=== PATIENT | female | born 1975 | race Caucasian/White ===

== ENCOUNTER 2017-09-26 10:24 | Inpatient (IN) | payer MEDICARE ==
[~2017-09-26] VITALS: Ht 132.1 cm; Wt 58.3 kg
[2017-09-26] MEDS ORDERED: ZIPRASIDONE 20 MG INJ IM ONE ×2 (11:59→12:00)
[2017-09-26 12:02] LABS: BASOPHILS # (AUTO) 0.04 x10^3/uL (0-0.1); BASOPHILS % (AUTO) 0 % (0-1); EOSINOPHILS # (AUTO) 0.22 x10^3/uL (0-0.4); EOSINOPHILS % (AUTO) 2 % (1-7); LYMPHOCYTES # (AUTO) 1.32 x10^3/uL (1-3.4); LYMPHOCYTES % (AUTO) 13 % (22-44); MD NO; MEAN CORPUSCULAR HEMOGLOBIN 31.8 pg (27.0-34.8); MEAN CORPUSCULAR HGB CONC 33.9 g/dL (32.4-35.8); MEAN CORPUSCULAR VOLUME 93.7 fL (80-100); MEAN PLATELET VOLUME 7.3 fL (7.4-10.4); MONOCYTES # (AUTO) 0.56 x10^3/uL (0.2-0.8); MONOCYTES % (AUTO) 5 % (2-9); NEUTROPHILS % (AUTO) 80 % (42-75); PLATELET COUNT 502 x10^3/uL (130-400); RED BLOOD COUNT 3.98 x10^6/uL (3.82-5.3); RED CELL DISTRIBUTION WIDTH 14.4 % (9.6-15.2)
[2017-09-26 12:16] LABS: ALANINE AMINOTRANSFERASE 20 U/L (12-78); ALBUMIN 2.8 g/dL (3.4-5.0); ANION GAP 9 mmol/L (5-15); CALCIUM 8.2 mg/dL (8.5-10.1); CHLORIDE 110 mmol/L (98-107); CREATININE 0.74 mg/dL (0.55-1.02); SALICYLATE LEVEL 2.2 mg/dL (2.8-20.0)
[2017-09-26 12:17] LABS: ALKALINE PHOSPHATASE 69 U/L (45-117); BILIRUBIN,TOTAL 0.2 mg/dL (0.2-1.0); TOTAL PROTEIN 7.1 g/dL (6.4-8.2)
[2017-09-26 12:28] LABS: ACETAMINOPHEN < 2 mcg/mL (10-30)
[2017-09-26] MEDS ORDERED: CLINDAMYCIN PMX 900MG/50ML 50 ML ONE (13:12)
[2017-09-26] MEDS ORDERED: PIPERACILLIN/TAZO/PMX 3.375GM 50 ML ONE (13:12)
[2017-09-26] MEDS ORDERED: SODIUM CHLORIDE 0.9% 1,000ML IVBOLUS ONE (13:30)
[2017-09-26] MEDS ORDERED: PIPERACILLIN/TAZO/PMX 3.375GM 50 ML IVPB ONE (13:30)
[2017-09-26] MEDS ORDERED: CLINDAMYCIN PMX 900MG/50ML 50 ML IV ONE (13:30)
[2017-09-26] MEDS ORDERED: KETAMINE 100 MG/ML, 5ML ONE (13:54)
[2017-09-26] MEDS ORDERED: morphine SULFATE 10 MG/ML, 1ML IVPush PRN (14:00)
[2017-09-26] MEDS ORDERED: DOCUSATE 100 MG CAPSULE PO PRN (14:00)
[2017-09-26] MEDS ORDERED: POLYETHYLENE GLYCOL 17 GM PACKET PO PRN (14:00)
[2017-09-26] MEDS ORDERED: ENALAPRILAT 1.25 MG/ML, 2ML IVPush PRN (14:00)
[2017-09-26] MEDS ORDERED: KETAMINE 10 MG/ML, 20ML IM ONE (14:00)
[2017-09-26] MEDS ORDERED: ONDANSETRON 2MG/ML, 2ML IVPush PRN (14:00)
[2017-09-26] MEDS ORDERED: BISACODYL 10 MG SUPP PR PRN (14:00)
[2017-09-26] MEDS ORDERED: LABETALOL 5MG/ML, 20ML IVPush PRN (14:00)
[2017-09-26 17:12] VITALS: BP 113/79
[2017-09-26] MEDS: ENOXAPARIN 40 MG/0.4 ML SQ SCH (18:14)
[2017-09-26] MEDS: SODIUM CHLORIDE 0.9% 1,000 ML IV SCH ×2 (18:14→23:39)
[2017-09-26] MEDS: PIPERACILLIN/TAZO/PMX 3.375GM 50 ML IV SCH (18:28)
[2017-09-26 19:08] VITALS: BP 108/57
[2017-09-26] MEDS: ZIPRASIDONE 20 MG INJ IM PRN (22:24)
[2017-09-26] MEDS: CLINDAMYCIN 300 MG CAPSULE PO SCH (22:25)
[2017-09-27 00:10] VITALS: BP 111/69
[2017-09-27] MEDS: PIPERACILLIN/TAZO/PMX 3.375GM 50 ML IV SCH ×4 (00:46→17:25)
[2017-09-27] MEDS: CLINDAMYCIN 300 MG CAPSULE PO SCH ×4 (04:30→21:33)
[2017-09-27] MEDS: SODIUM CHLORIDE 0.9% 1,000 ML IV SCH ×2 (04:30→17:28)
[2017-09-27 06:25] LABS: BASOPHILS # (AUTO) 0.05 x10^3/uL (0-0.1); BASOPHILS % (AUTO) 1 % (0-1); EOSINOPHILS # (AUTO) 0.27 x10^3/uL (0-0.4); EOSINOPHILS % (AUTO) 3 % (1-7); LYMPHOCYTES # (AUTO) 1.96 x10^3/uL (1-3.4); LYMPHOCYTES % (AUTO) 20 % (22-44); MD NO; MEAN CORPUSCULAR HEMOGLOBIN 31.4 pg (27.0-34.8); MEAN CORPUSCULAR HGB CONC 33.7 g/dL (32.4-35.8); MEAN CORPUSCULAR VOLUME 93.1 fL (80-100); MEAN PLATELET VOLUME 7.4 fL (7.4-10.4); MONOCYTES # (AUTO) 0.53 x10^3/uL (0.2-0.8); MONOCYTES % (AUTO) 6 % (2-9); NEUTROPHILS # (AUTO) 6.87 x10^3/uL (1.8-6.8); NEUTROPHILS % (AUTO) 71 % (42-75); PLATELET COUNT 438 x10^3/uL (130-400); RED BLOOD COUNT 3.63 x10^6/uL (3.82-5.3); RED CELL DISTRIBUTION WIDTH 14.4 % (9.6-15.2)
[2017-09-27 06:33] LABS: INTERNATIONAL NORMALIZED RATIO 1.01 (0.93-1.1); PROTHROMBIN TIME 10.4 Seconds (9.6-11.5)
[2017-09-27 06:40] LABS: CHLORIDE 112 mmol/L (98-107)
[2017-09-27 06:47] LABS: ALANINE AMINOTRANSFERASE 16 U/L (12-78); ALBUMIN 2.2 g/dL (3.4-5.0); ALKALINE PHOSPHATASE 56 U/L (45-117); ANION GAP 9 mmol/L (5-15); BILIRUBIN,TOTAL 0.4 mg/dL (0.2-1.0); CALCIUM 7.9 mg/dL (8.5-10.1); CREATININE 0.58 mg/dL (0.55-1.02); TOTAL PROTEIN 5.9 g/dL (6.4-8.2)
[2017-09-27 07:19] LABS: HCT (SEDRATE) 33.8 % (34.6-47.8)
[2017-09-27 07:46] VITALS: BP 118/70
[2017-09-27] MEDS: SENNA/DOCUSATE TABLET PO SCH (09:40)
[2017-09-27] MEDS: ENOXAPARIN 40 MG/0.4 ML SQ SCH (14:00)
[2017-09-27 14:30] LABS: MICROSCOPIC INDICATED
[2017-09-27 14:36] LABS: AMPHETAMINE SCREEN, URINE Negative (Negative); BARBITURATE SCREEN, URINE Negative (Negative); BENZODIAZEPINE SCREEN, URINE Positive (Negative); CANNABINOID SCREEN, URINE Positive (Negative); COCAINE SCREEN, URINE Negative (Negative); METHADONE SCREEN, URINE Negative (Negative); OPIATE SCREEN, URINE Negative (Negative)
[2017-09-27 14:40] LABS: CULTURE INDICATED? YES
[2017-09-27 15:00] VITALS: BP 110/75
[2017-09-27] MEDS: NICOTINE 21 MG/24 HR PATCH.TD24 TD SCH (15:34)
[2017-09-27 22:20] VITALS: BP 117/77
[2017-09-28] MEDS: PIPERACILLIN/TAZO/PMX 3.375GM 50 ML IV SCH ×4 (00:05→18:22)
[2017-09-28 02:55] VITALS: BP 117/62
[2017-09-28] MEDS: ACETAMINOPHEN 325 MG TABLET PO PRN ×2 (03:47→22:55)
[2017-09-28] MEDS: CLINDAMYCIN 300 MG CAPSULE PO SCH ×4 (04:29→22:55)
[2017-09-28] MEDS: SODIUM CHLORIDE 0.9% 1,000 ML IV SCH ×2 (05:46→12:40)
[2017-09-28] MEDS: SENNA/DOCUSATE TABLET PO SCH (08:24)
[2017-09-28 08:25] VITALS: BP 110/74
[2017-09-28] MEDS: NICOTINE 21 MG/24 HR PATCH.TD24 TD SCH (08:25)
[2017-09-28] MEDS: ENOXAPARIN 40 MG/0.4 ML SQ SCH (14:00)
[2017-09-28] MEDS ORDERED: CLINDAMYCIN 300 MG CAPSULE PO SCH (17:00)
[2017-09-28] MEDS ORDERED: CLINDAMYCIN 150 MG CAPSULE PO ONE (17:00)
[2017-09-28 17:31] VITALS: BP 128/83
[2017-09-28 19:15] VITALS: BP 115/73
[2017-09-29] MEDS: PIPERACILLIN/TAZO/PMX 3.375GM 50 ML IV SCH ×2 (00:29→05:37)
[2017-09-29 01:31] VITALS: BP 117/72
[2017-09-29] MEDS: SODIUM CHLORIDE 0.9% 1,000 ML IV SCH (01:39)
[2017-09-29] MEDS: CLINDAMYCIN 300 MG CAPSULE PO SCH (05:37)
[2017-09-29] MEDS: SENNA/DOCUSATE TABLET PO SCH (09:00)
[2017-09-29 09:27] VITALS: BP 128/77
[2017-09-29] MEDS: NICOTINE 21 MG/24 HR PATCH.TD24 TD SCH (09:42)
[2017-09-29] MEDS ORDERED: PSYLLIUM PACKET PO PRN (10:00)
[2017-09-29] MEDS ORDERED: PSYLLIUM PACKET ONE (10:01)
[2017-09-29] MEDS: ENOXAPARIN 40 MG/0.4 ML SQ SCH (14:00)
[2017-09-29 14:01] VITALS: BP 124/77
[2017-09-29 19:24] VITALS: BP 117/81
[2017-09-29] MEDS ORDERED: AMOXICILLIN/CLAV 875-125MG TABLET PO SCH (21:00)
[2017-09-29] MEDS: ACETAMINOPHEN 325 MG TABLET PO PRN (23:50)
[2017-09-30 01:16] VITALS: BP 120/87
[2017-09-30] MEDS ORDERED: AMPICILLIN/SULBACTAM 3 GM in SODIUM CHLORIDE 0.9% 100 ML IV SCH (07:30)
[2017-09-30 08:21] VITALS: BP 109/56
[2017-09-30] MEDS: NICOTINE 21 MG/24 HR PATCH.TD24 TD SCH (08:32)
[2017-09-30] MEDS: SENNA/DOCUSATE TABLET PO SCH (08:32)
[2017-09-30] MEDS: AMOXICILLIN/CLAV 875-125MG TABLET PO SCH ×2 (10:26→20:37)
[2017-09-30 13:50] VITALS: BP 110/74
[2017-09-30] MEDS: ENOXAPARIN 40 MG/0.4 ML SQ SCH (14:00)
[2017-09-30] MEDS: MUPIROCIN OINT 2%, 22GM TP SCH (18:31)
[2017-09-30 19:57] VITALS: BP 135/89
[2017-10-01 03:19] VITALS: BP 119/62
[2017-10-01] MEDS: NICOTINE 21 MG/24 HR PATCH.TD24 TD SCH (05:57)
[2017-10-01] MEDS: MUPIROCIN OINT 2%, 22GM TP SCH ×2 (06:00→17:45)
[2017-10-01 08:23] VITALS: BP 118/79
[2017-10-01] MEDS: SENNA/DOCUSATE TABLET PO SCH (09:00)
[2017-10-01] MEDS: AMOXICILLIN/CLAV 875-125MG TABLET PO SCH ×2 (09:00→19:53)
[2017-10-01] MEDS: ENOXAPARIN 40 MG/0.4 ML SQ SCH (13:58)
[2017-10-01 19:25] VITALS: BP 111/72
[2017-10-02] MEDS ORDERED: ASPIRIN 325 MG TABLET PO ONE (00:30)
[2017-10-02 01:38] VITALS: BP 93/54
[2017-10-02] MEDS: MUPIROCIN OINT 2%, 22GM TP SCH ×2 (06:40→19:59)
[2017-10-02 07:00] VITALS: BP 137/66
[2017-10-02] MEDS: SENNA/DOCUSATE TABLET PO SCH (09:00)
[2017-10-02] MEDS: AMOXICILLIN/CLAV 875-125MG TABLET PO SCH ×2 (09:54→19:59)
[2017-10-02] MEDS: NICOTINE 21 MG/24 HR PATCH.TD24 TD SCH (09:54)
[2017-10-02 13:00] VITALS: BP 101/57
[2017-10-02] MEDS: ENOXAPARIN 40 MG/0.4 ML SQ SCH (13:21)
[2017-10-02 18:41] VITALS: BP 112/72
[2017-10-03 02:15] VITALS: BP 97/60
[2017-10-03] MEDS: MUPIROCIN OINT 2%, 22GM TP SCH ×2 (06:22→18:00)
[2017-10-03 08:00] VITALS: BP 99/60
[2017-10-03] MEDS: NICOTINE 21 MG/24 HR PATCH.TD24 TD SCH (08:37)
[2017-10-03] MEDS: AMOXICILLIN/CLAV 875-125MG TABLET PO SCH ×2 (08:37→20:07)
[2017-10-03] MEDS: SENNA/DOCUSATE TABLET PO SCH (08:37)
[2017-10-03] MEDS: ENOXAPARIN 40 MG/0.4 ML SQ SCH (13:50)
[2017-10-03 14:00] VITALS: BP 106/71
[2017-10-03 20:14] VITALS: BP 103/67
[2017-10-03] MEDS: ASPIRIN 325 MG TABLET PO PRN (23:04)
[2017-10-04 05:20] VITALS: BP 88/50
[2017-10-04] MEDS: MUPIROCIN OINT 2%, 22GM TP SCH ×2 (05:58→10:26)
[2017-10-04] MEDS: SENNA/DOCUSATE TABLET PO SCH (09:00)
[2017-10-04 09:09] VITALS: BP 100/58
[2017-10-04] MEDS: NICOTINE 21 MG/24 HR PATCH.TD24 TD SCH (10:20)
[2017-10-04] MEDS: AMOXICILLIN/CLAV 875-125MG TABLET PO SCH ×2 (10:20→21:28)
[2017-10-04 13:15] VITALS: BP 109/76
[2017-10-04] MEDS: ENOXAPARIN 40 MG/0.4 ML SQ SCH (14:00)
[2017-10-04 20:01] VITALS: BP 103/63
[2017-10-04] MEDS: ASPIRIN 325 MG TABLET PO PRN (22:43)
[2017-10-05 01:54] VITALS: BP 99/60
[2017-10-05] MEDS: MUPIROCIN OINT 2%, 22GM TP SCH ×3 (06:00→22:20)
[2017-10-05] MEDS: SENNA/DOCUSATE TABLET PO SCH (07:02)
[2017-10-05 09:15] VITALS: BP 100/61
[2017-10-05] MEDS: ENOXAPARIN 40 MG/0.4 ML SQ SCH (14:00)
[2017-10-05] MEDS: AMOXICILLIN/CLAV 875-125MG TABLET PO SCH ×2 (14:28→22:20)
[2017-10-05] MEDS: NICOTINE 21 MG/24 HR PATCH.TD24 TD SCH (14:29)
[2017-10-05 15:31] VITALS: BP 100/69
[2017-10-05 19:16] VITALS: BP 110/68
[2017-10-05] MEDS: ASPIRIN 325 MG TABLET PO PRN (22:21)
[2017-10-06 03:26] VITALS: BP 103/68
[2017-10-06 07:50] VITALS: BP 100/63
[2017-10-06] MEDS: SENNA/DOCUSATE TABLET PO SCH (09:00)
[2017-10-06] MEDS: NICOTINE 21 MG/24 HR PATCH.TD24 TD SCH (09:00)
[2017-10-06] MEDS: AMOXICILLIN/CLAV 875-125MG TABLET PO SCH ×2 (09:00→21:34)
[2017-10-06] MEDS: ENOXAPARIN 40 MG/0.4 ML SQ SCH (14:00)
[2017-10-06 14:20] VITALS: BP 98/64
[2017-10-06] MEDS: MUPIROCIN OINT 2%, 22GM TP SCH (18:00)
[2017-10-06 20:34] VITALS: BP 116/81
[2017-10-06] MEDS: ASPIRIN 325 MG TABLET PO PRN (23:49)
[2017-10-07 08:16] VITALS: BP 118/77
[2017-10-07] MEDS: NICOTINE 21 MG/24 HR PATCH.TD24 TD SCH (09:00)
[2017-10-07] MEDS: AMOXICILLIN/CLAV 875-125MG TABLET PO SCH (09:00)
[2017-10-07] MEDS: SENNA/DOCUSATE TABLET PO SCH (09:00)
[2017-10-07] MEDS: ZIPRASIDONE 20 MG INJ IM PRN (09:46)
[2017-10-07] MEDS: MUPIROCIN OINT 2%, 22GM TP SCH (11:00)
== END 2017-10-07 11:55 | DRG 602 ==
LOC: EDSEX 10:24 → ED 13:18 → EDIP 13:19 → ED 13:41 → 3NE 16:56 → 3E 10-06 17:56
PROVIDERS: ADMIT Internal Medicine Pulmonary Disease; ATTEND Internal Medicine Pulmonary Disease
DX: L03.115 Cellulitis of right lower limb (principal); G92 Toxic encephalopathy; E44.0 Moderate protein-calorie malnutrition; E44.1 Mild protein-calorie malnutrition; L97.319 Non-pressure chronic ulcer of right ankle with unspecified severity; F23 Brief psychotic disorder; L97.929 Non-pressure chronic ulcer of unspecified part of left lower leg with unspecified severity; F12.20 Cannabis dependence, uncomplicated; F15.90 Other stimulant use, unspecified, uncomplicated; F29 Unspecified psychosis not due to a substance or known physiological condition; Z88.8 Allergy status to other drugs, medicaments and biological substances; Z91.048 Other nonmedicinal substance allergy status; Z68.33 Body mass index [BMI] 33.0-33.9, adult; D64.9 Anemia, unspecified; F17.210 Nicotine dependence, cigarettes, uncomplicated; F32.9 Major depressive disorder, single episode, unspecified; F41.9 Anxiety disorder, unspecified; Z78.1 Physical restraint status; Z86.59 Personal history of other mental and behavioral disorders; Z91.83 Wandering in diseases classified elsewhere
CPT/HCPCS: 36415; 80053; 80307; 80329; 81001; 83605; 85025; 85610; 85651; 87040; 87086; 87491; 87591; J2543; J3486; G0480; J7030